=== PATIENT | male | born 1985 | race Caucasian/White ===

== ENCOUNTER 2019-01-16 07:30 | Emergency (ER) | payer SELFPAY ==
[2019-01-16 07:31] VITALS: BP 113/70; PULSE 69; RESP 16; TEMP 36.4; O2SAT 99; BMI 24.3
--- NOTE | 2019-01-16 07:50 | ED.DCSUM_ITS ---
- ER Visit Summary Date of Service: 01/16/19 Chief Complaint: Low back pain History of Present Illness: The patient is a 33 M past medical or surgical history. Patient works going horizontal [employer]. States about 4 days ago he developed low back pain. Gradual in onset. No radiation. No pain or numbness nor any weakness in his lower extremities. No bowel or bladder incontinence or retention. No fever. Denies any IV drug use. Patient states he had intermittent back pain in the past. He has never had any back surgeries or procedures. Physical Examination: Vital signs are stable afebrile. He is in no distress. A young healthy male. HEENT exam unremarkable. Neck nontender no lymphadenopathy. Lungs clear to auscultation bilaterally. Heart regular rhythm rate about 100 no murmur. Chest wall nontender. Abdomen soft nontender. Normal bowel sounds no peritoneal signs. He is moving all 4 extremities. There are neurovascular intact. He has 5 out of 5 motor strength of both hands. Dorsi plantarflexion intact. He has no saddle anesthesia. He has normal medial thigh sensation. He can lift either leg off the bed. It causes him more pain in his back but there is no radiculopathy. He has a negative straight leg raise bilaterally. Back exam his spine is nontender he points to his lower and mid lumbar spine but there is no reproducible tenderness. No redness or warmth. No discoloration or any signs of trauma. Test Results: None. I discussed with the patient without trauma plain films really would be of limited if any value. He meets no criteria for MRI at this time. Emergency Department Course and Treatment: IM Toradol. Treatment Plan: Naprosyn for pain. Follow-up with his primary care physician if not improving. Return if incontinence, weakness or radiculopathy develop Disposition: Discharge Impression: Acute musculoskeletal lumbar back pain This note was generated with [employer] dictation software. It may contain incorrect words, spelling, and punctuation that were not noted in review of the chart prior to signing ED Disposition - Plan for ED Patient: Referrals: NOT,DEFINED [Primary Care Provider] -
--- NOTE | 2019-01-16 07:54 | ED.DEP ---
ED Disposition - Plan for ED Patient: Disposition: Home or Assisted Living Instructions: BACK PAIN (Acute or Chronic) Prescriptions: Naproxen [Naprosyn] 500 mg PO BID PRN PRN #20 tab PRN Reason: Pain Prescription Printed Referrals: David Pressley MD [STAFF PHYSICIAN] - 1 Week if not improving Additional Instructions: Naprosyn 1 pill twice a day for your back pain. Ice and heat to your back. If not improving follow-up with your doctor or the doctor referred you to. If you start getting worse pain, fever, bowel or bladder incontinence or pain radiating to your legs or weakness return.
[2019-01-16] MEDS: Ketorolac 60 MG/2 ML Vial IM (08:08)
== END 2019-01-16 08:31 | disposition home or self-care (01) ==
PROVIDERS: Emergency Provider Emergency Medicine
DX: M54.5 Low back pain (principal); Z72.0 Tobacco use
CPT/HCPCS: 96372; 99282